=== PATIENT | female | born 1955 | race Caucasian/White ===

== ENCOUNTER 2018-10-01 08:49 | Emergency (ER) | payer MEDICARE, OTHER ==
[2018-10-01] MEDS: KETOROLAC 30 MG INJ IM (09:41)
== END 2018-10-01 10:29 | disposition home or self-care (01) ==
LOC: FTE 08:49
DX: M25.562 Pain in left knee (principal); M25.561 Pain in right knee; E11.9 Type 2 diabetes mellitus without complications; I10 Essential (primary) hypertension; J45.909 Unspecified asthma, uncomplicated
CPT/HCPCS: 96372; 99284-25